=== PATIENT | male | born 1965 | race Caucasian/White ===

== ENCOUNTER → 2017-02-11 | Outpatient (CLI) | payer OTHER ==
[~2017-02-11] MED LIST: AMLO2.5T PO; LORA0.5T2 PO; METO-323 PO; MULT-685 PO; PERCT PO
== END | disposition home or self-care (01) ==
LOC: RADMN 08:43
PROVIDERS: ATTEND General Practice
DX: R22.1 Localized swelling, mass and lump, neck (principal)
CPT/HCPCS: 70490

== ENCOUNTER 2017-04-07 18:38 | Emergency (ER) | payer OTHER ==
[~2017-04-07] VITALS: Ht 182.9 cm; Wt 82.0 kg
[2017-04-07 20:57] VITALS: BP 129/78
[2017-04-07] MEDS ORDERED: OxyCODONE HCL/ACETAMINOPHEN 5-325 MG TABLET PO ONE (21:00)
== END 2017-04-07 21:24 | disposition home or self-care (01) ==
LOC: EMS 18:38
DX: M79.604 Pain in right leg (principal); F10.229 Alcohol dependence with intoxication, unspecified; F29 Unspecified psychosis not due to a substance or known physiological condition; Y90.9 Presence of alcohol in blood, level not specified
CPT/HCPCS: 99283

== ENCOUNTER 2017-08-07 09:52 | Emergency (ER) | payer OTHER ==
[~2017-08-07] VITALS: Ht 182.9 cm; Wt 90.9 kg
[~2017-08-07 09:52] MED LIST changes: -METO-323 PO; +METO25XL PO
[2017-08-07] MEDS ORDERED: LIDOCAINE HCL 1%/EPI 1:200,000/PF 10 ML VIAL INJ ONE (11:15)
[2017-08-07 13:16] VITALS: BP 132/84
[2017-08-07] MEDS ORDERED: BACITRACIN 0.9 GM PACKET OINTMENT TP ONE (13:30)
== END 2017-08-07 13:53 | disposition home or self-care (01) ==
LOC: EMS 09:53
DX: S01.81XA Laceration without foreign body of other part of head, initial encounter (principal); M79.5 Residual foreign body in soft tissue; Y04.0XXA Assault by unarmed brawl or fight, initial encounter; Y93.89 Activity, other specified; Y92.89 Other specified places as the place of occurrence of the external cause; Y99.8 Other external cause status
CPT/HCPCS: 12002; 70450; 99284; J3490